=== PATIENT | male | born 1985 | race Caucasian/White ===

== ENCOUNTER 2020-03-04 13:21 | Emergency (ER) | payer MEDICARE ==
[~2020-03-04] VITALS: Ht 185.4 cm; Wt 106.1 kg
[2020-03-04 13:36] VITALS: BP 150/50
== END 2020-03-04 14:08 | disposition home or self-care (01) ==
LOC: ER 13:21
DX: R00.2 Palpitations (principal); F15.90 Other stimulant use, unspecified, uncomplicated; J45.909 Unspecified asthma, uncomplicated; K21.9 Gastro-esophageal reflux disease without esophagitis; F17.210 Nicotine dependence, cigarettes, uncomplicated

== ENCOUNTER 2020-03-24 19:14 | Emergency (ER) | payer SELFPAY ==
[~2020-03-24] VITALS: Ht 175.3 cm; Wt 68.0 kg
[2020-03-24] MEDS: SODIUM CHLORIDE 0.9% 2,000 ML IV ONE ×2 (19:30→22:15)
[2020-03-24] MEDS ORDERED: diphenhdrAMINE HCL 50 MG/1 ML VL IM ONE (19:30)
[2020-03-24] MEDS ORDERED: HALOPERIDOL LACTATE 5 MG/ML INJ VIAL IM ONE ×2 (19:30→21:45)
[2020-03-24] MEDS ORDERED: LORazepam 2MG/ML-1ML VIAL IM ONE (19:30)
[2020-03-24 22:26] LABS: Urine Bacteria NONE SEEN /hpf (None Seen); Urine Blood Negative /uL (Negative); Urine Hyaline Cast MOD /lpf (0 - 2); Urine Mucus FEW (None Seen); Urine Specific Gravity 1.029 (1.001-1.035); Urine Sperm PRESENT /hpf (None Seen); Urine WBC 4 /hpf (0 - 3)
[2020-03-24 22:31] LABS: Basophils # (auto) 0 10 ^3/uL (0-0.2); Basophils % (auto) 0.3 % (0.0-2.0); Eosinophils # (auto) 0 10 ^3/uL (0-0.8); Hematocrit 35.3 % (41.0-53.0); Hemoglobin 11.7 g/dL (13.5-17.5); Lymphocytes # (auto) 0.8 10 ^3/uL (0.4-5.4); Lymphocytes % (auto) 6.6 % (10.0-50.0); Mean Corpuscular Hgb Conc. 33.1 g/dL (32.0-36.0); Mean Corpuscular Volume 87.5 fL (80.0-100.0); Monocytes # (auto) 0.2 10 ^3/uL (0-1.3); Neutrophils # (auto) 10.6 10 ^3/uL (1.6-8.6); Neutrophils % (auto) 91.1 % (37.0-80.0); Platelet Count (auto) 251 10^3/uL (140-450); Red Blood Cells 4.03 10^6/uL (4.5-5.90); Red Cell Distribution Width 15.1 % (11.8-14.3); White Blood Cell 11.6 10^3/uL (4.4-10.8)
[2020-03-24 22:42] LABS: Alcohol, Urine < 3.0 mg/dL (0-10); Amphetamine Screen, Urine POSITIVE (NEGATIVE); Barbiturate Scree,Urine NEGATIVE (NEGATIVE); Benzodiazephine Screen, Urine NEGATIVE (NEGATIVE); Cannabinoid Screen, Urine POSITIVE (NEGATIVE); Cocaine Screen, Urine NEGATIVE (NEGATIVE); Phencyclidine Screen, Urine NEGATIVE (NEGATIVE)
[2020-03-24 22:48] LABS: Albumin 3.5 g/dL (3.4-5.0); Anion Gap 6 (5-15); Blood Urea Nitrogen 36 mg/dL (7-18); Calcium 8.3 mg/dL (8.5-10.1); Carbon Dioxide 26 mmol/L (21-32); Chloride 113 mmol/L (98-107); Glucose 98 mg/dL (74-106); Potassium 3.7 mmol/L (3.5-5.1); Sodium 145 mmol/L (136-145)
[2020-03-24 22:50] LABS: Opiate Scree,Urine NEGATIVE (NEGATIVE)
[2020-03-24 23:04] LABS: Alanine Aminotransferase 42 U/L (16-61); Alkaline Phosphatase 61 U/L (45-117); Aspartate Aminotransferase 59 U/L (15-37); BUN/Creatinine Ratio 27.7; Creatine Kinase IFCC 1306 U/L (39-308); GFR African American 81 mL/min; GFR Non-African American 67 mL/min; Total Protein 6.7 g/dL (6.4-8.2)
[2020-03-24 23:08] LABS: Blood Alcohol < 3.0 mg/dL (0-5)
[2020-03-25] MEDS ORDERED: LORazepam 2MG/ML-1ML VIAL IV ONE (03:30)
[2020-03-25 06:23] VITALS: BP 101/56
== END 2020-03-25 07:18 | disposition left against medical advice (07) ==
LOC: ER 19:14 → EDUNIT# 19:14 → EDBD 19:14 → ER 03-25 07:18
DX: G92 Toxic encephalopathy (principal); F15.10 Other stimulant abuse, uncomplicated; M62.82 Rhabdomyolysis; Z59.0 Homelessness
CPT/HCPCS: 36415; 70450; 71045; 80053; 80307; 80320; 81001; 82550; 82962; 83605; 85025; 93005; 96361; 96372; 96374; 99285; J1200; J1630; J2060; 96360

== ENCOUNTER 2020-05-15 21:33 | Emergency (ER) | payer SELFPAY ==
[~2020-05-15] VITALS: Ht 185.4 cm; Wt 68.0 kg
[2020-05-15 21:58] VITALS: BP 122/85
== END 2020-05-15 22:05 ==
LOC: ER 21:33
DX: F19.10 Other psychoactive substance abuse, uncomplicated (principal)